=== PATIENT | male | born 1980 | race Caucasian/White ===

== ENCOUNTER 2019-02-15 09:06 | Emergency (ER) | payer OTHER ==
[~2019-02-15] VITALS: Ht 172.7 cm; Wt 89.8 kg
[~2019-02-15 09:06] MED LIST: CEPH500 PO; OXYACE5T PO
[2019-02-15] MEDS ORDERED: LEVOFLOXACIN750 MG PO (10:26)
[2019-02-15] MEDS ORDERED: MUCUS ER1200 MG PO (10:26)
[2019-02-15] MEDS ORDERED: Flonase 0.05% N16 GM (10:26)
== END 2019-02-15 10:31 | disposition home or self-care (01) ==
LOC: ER 09:06
DX: J01.00 Acute maxillary sinusitis, unspecified (principal); Z87.891 Personal history of nicotine dependence
CPT/HCPCS: 99282

== ENCOUNTER 2024-04-25 09:24 | Emergency (ER) | payer OTHER ==
[~2024-04-25] VITALS: Ht 172.7 cm; Wt 93.0 kg
[~2024-04-25 09:24] MED LIST changes: +Flonase 0.05% N16 GM; +LEVOFLOXACIN750 MG PO; +MUCUS ER1200 MG PO
[2024-04-25 09:26] VITALS: BP 137/80
[2024-04-25 10:46] LABS: Source, Urine Clean Catch
[2024-04-25 10:49] LABS: BASOPHILS ABSOLUTE AUTO 0.13 K/mm3 (0.00-0.23); BASOPHILS PERCENT AUTO 2 % (0-2); EOSINOPHILS ABSOLUTE AUTO 0.19 K/mm3 (0.00-0.68); EOSINOPHILS PERCENT AUTO 3 % (0-6); Hematocrit 46.9 % (37.0-53.0); Hemoglobin 16.3 g/dL (13.5-17.5); IMMATURE GRAN ABSOLUTE AUTO 0.04 K/mm3 (0.00-0.10); IMMATURE GRAN PERCENT AUTO 1 % (0-1); LYMPHOCYTES ABSOLUTE AUTO 2.33 K/mm3 (0.84-5.20); LYMPHOCYTES PERCENT AUTO 32 % (21-46); MONOCYTES ABSOLUTE AUTO 0.53 K/mm3 (0.16-1.47); MONOCYTES PERCENT AUTO 7 % (4-13); Mean Corpuscular HGB 30.8 pg (26.0-34.0); Mean Corpuscular HGB Conc 34.8 g/dL (31.5-36.5); Mean Corpuscular Volume 89 fL (80-100); Mean Platelet Volume 12.2 fL (9.1-12.4); NEUTROPHILS ABSOLUTE AUTO 4.06 K/mm3 (1.96-9.15); NEUTROPHILS PERCENT AUTO 56 % (41-73); Platelet Count 188 K/mm3 (150-400); RDW Coefficient Variation 12.6 % (11.7-14.2); RDW Standard Deviation 41.1 fL (35.1-46.3); White Blood Cell Count 7.28 K/mm3 (4.00-11.30)
[2024-04-25 10:56] LABS: Appearance, Urine Clear (Clear); Bilirubin, Urine Neg (Neg); Blood, Urine Neg (Neg); Color, Urine Yellow (P-Yellow); Glucose Qualitative, Urine Neg (Neg); Ketones, Urine Neg (Neg); Leukocyte Esterase, Urine Neg (Neg); Nitrite, Urine Neg (Neg); Protein, Urine Neg (Neg); Specific Gravity, Urine 1.015 (1.003-1.022); Urobilinogen, Urine NORM (Normal); pH, Urine 6.5 (5.0-8.0)
[2024-04-25 11:48] LABS: Albumin, Blood 3.9 g/dL (3.4-5.0); Bilirubin, Total 0.3 mg/dL (0.1-1.0); Bun/Creatinine Ratio 23.6 (12.0-20.0); Calcium, Blood 9.3 mg/dL (8.5-10.1); Creatinine, Blood 0.93 mg/dL (0.60-1.20); Globulin, Blood 3.9 g/dL (2.2-4.0); Potassium, Blood 4.5 mmol/L (3.5-5.5); Total Protein, Blood 7.8 g/dL (6.4-8.2)
[2024-04-25] MEDS ORDERED: Ketorolac Tromethamine 15mg Vial IV ONE (11:55)
[2024-04-25] MEDS ORDERED: CYCL10 PO (12:35)
== END 2024-04-25 12:35 | disposition home or self-care (01) ==
LOC: ER 09:24
PROVIDERS: Student in an Organized Health Care Education/Training Program
DX: N43.3 Hydrocele, unspecified (principal); M54.50 Low back pain, unspecified; G89.29 Other chronic pain; Z87.891 Personal history of nicotine dependence; F10.11 Alcohol abuse, in remission
CPT/HCPCS: 76870; 80053; 81003; 85025; 96374; 99284-25; J1885